=== PATIENT | male | born 1985 | race Caucasian/White ===

== ENCOUNTER 2016-12-24 16:54 | Emergency (ER) | payer BC, OTHER ==
[~2016-12-24] VITALS: Ht 172.7 cm; Wt 79.4 kg
[2016-12-24 16:57] VITALS: BP 132/88; PULSE 53; RESP 20; TEMP 97.4; O2SAT 97
--- NOTE | 2016-12-24 17:28 | NUR ---
BROUGHT BACK TO BED #8 AND WILL ASSUME CARE
--- NOTE | 2016-12-24 17:34 | NUR ---
DR HAWKINS TO BEDSIDE FOR EVALUATION
--- NOTE | 2016-12-24 17:34 | NUR ---
PT STATES UPPER MIDDLE BACK PAIN, STATES INJURY TO BACK ABOUT 3 YEARS AGO, NO RE-INJURY. PT STATES HE WANTS HIS BACK CHECKED DUE TO TRAVELING TO [place] TOMORROW. WANTS TO RULE OUT MENINGITIS AND REFLUX.
[2016-12-24 17:56] VITALS: BP 124/71; PULSE 68; RESP 18; TEMP 98.3; O2SAT 97
== END 2016-12-24 17:56 | disposition home or self-care (01) ==
LOC: SED 16:54
DX: M54.89 Other dorsalgia (principal); Z88.0 Allergy status to penicillin
CPT/HCPCS: 99282